=== PATIENT | female | born 1995 | race African-American/Black ===

== ENCOUNTER 2020-04-07 15:25 | Emergency (ER) | payer SELFPAY ==
[~2020-04-07] VITALS: Ht 160 cm; Wt 76.5 kg
--- NOTE | 2020-04-07 18:19 | NUR ---
PATIENT COMES IN TODAY WITH C/O EXHAUSTION X2 MONTHS, DIZZINESS INTERMITTENTLY X2 MONTHS. PATIENT STATES EARLIER TODAY AROUND 1 PM SHE WAS IN THE BATHROOM THROWING UP AND HER WHOLE BODY FELT "NUMB AND TINGLY" AND THEN SHE PASSED OUT. PATIENT DENIES OTHER SYNCOPAL EPISODES BEFORE THIS. PATIENT ALSO STATES SHES HAD SOME SHARP CHEST PAINS OVER THE LAST COUPLE WEEKS. PATIENT DENIES ANY NUMBNESS OR TINGLING AT THIS TIME. PATIENT A&OX4, ACCOMPANIED BY BOYFRIEND, HR 78, BP 132/82.
[2020-04-07] MEDS ORDERED: ESCI10TA PO (18:26)
--- NOTE | 2020-04-07 18:47 | NUR ---
PATIENT AMBULATED TO BATHROOM.
--- NOTE | 2020-04-07 18:49 | NUR ---
Report receieved from Natalia BROTHERS
--- NOTE | 2020-04-07 18:50 | NUR ---
TRANSFER OF CARE; SBAR GIVEN TO DENEEN REYNOSO AT BEDSIDE.
[2020-04-07 19:18] LABS: ANION GAP 8 mmol/L (5-15); CALCIUM 8.8 mg/dL (8.5-10.1); CHLORIDE 108 mmol/L (98-107); CREATININE 0.78 mg/dL (0.55-1.02)
[2020-04-07 19:19] LABS: BASOPHILS # (AUTO) 0.02 x10^3/uL (0-0.1); BASOPHILS % (AUTO) 0 % (0-1); EOSINOPHILS # (AUTO) 0.09 x10^3/uL (0-0.4); EOSINOPHILS % (AUTO) 1 % (1-7); LYMPHOCYTES # (AUTO) 2.29 x10^3/uL (1-3.4); LYMPHOCYTES % (AUTO) 22 % (22-44); MD NO; MEAN CORPUSCULAR HEMOGLOBIN 28.7 pg (27.0-34.8); MEAN CORPUSCULAR HGB CONC 32.6 g/dL (32.4-35.8); MEAN CORPUSCULAR VOLUME 88.1 fL (80-100); MEAN PLATELET VOLUME 9.1 fL (7.4-10.4); MONOCYTES # (AUTO) 0.44 x10^3/uL (0.2-0.8); MONOCYTES % (AUTO) 4 % (2-9); NEUTROPHILS # (AUTO) 7.53 x10^3/uL (1.8-6.8); NEUTROPHILS % (AUTO) 73 % (42-75); PLATELET COUNT 349 x10^3/uL (130-400); RED BLOOD COUNT 4.53 x10^6/uL (3.82-5.3); RED CELL DISTRIBUTION WIDTH 13.8 % (9.6-15.2)
[2020-04-07 20:00] VITALS: BP 111/82
--- NOTE | 2020-04-07 20:00 | NUR ---
TASK RN. PT D/C'D PER ERMD ORDERS. PT VERBALIZED UNDERSTANDING OF D/C ORDERS, STEADY GAIT UPON D/C.
== END 2020-04-07 20:06 | disposition home or self-care (01) ==
LOC: ED 20:00
DX: R55 Syncope and collapse (principal); R42 Dizziness and giddiness; R07.89 Other chest pain; R94.31 Abnormal electrocardiogram [ECG] [EKG]; R11.0 Nausea; F17.200 Nicotine dependence, unspecified, uncomplicated
CPT/HCPCS: 36415; 80048; 82040; 84703; 85025; 85379; 93005; 99284

== ENCOUNTER 2020-10-17 10:00 | Observation (INO) | payer OTHER ==
[~2020-10-17] VITALS: Ht 160 cm; Wt 80.6 kg
[~2020-10-17 10:00] MED LIST: ESCI10TA97 PO
--- NOTE | 2020-10-17 10:21 | NUR ---
PT BIB EMS FROM HOME SO SA. PLACED ON L2K BY [employer]. PT IS APROXX 26 WEEKS . AROUND 0830 TODAY PT ADMITS TO INGESTION ABOUT 640MG OF LEXAPRO. PER L2K PT ALSO FILLED BATHTUB WITH WATER AND WAS GOING TO GET INTO THE TUB AND THROW A TOASTER IN THE WATER BUT THE WAS ABLE TO CUT THE POWER TO THE HOUSE. PT HAS BEEN CALM AND COOPERATIVE. AND DANAE UNIT MANAGER CONVENIENCE STORES BEDSIDE FOR ASSESSMENT. PT DENIES VB OR CRAMPING. L&d NURSE IS BEDSIDE FOR ASSESSMENT. PT REPORTS THIS IS HER SECOND WITH THE FIRST BEING A MISCARRIAGE AROUND 13 WEEKS. PT STATES "KRISTINE BEEN NEEDING HELP FOR A WHILE. I JUST DID NOT KNOW HOW TO ASK" . UA SENT. LABS DRAWN. EKG COMPLETE. PT CONNECTED TO ALL MONITORING EQUIPMENT. ONLY PT AISHWARYA IS A BATHROBE. PT IS IN ROOM WITH CLEAR LINE OF VISION TO NURSES STATION. WILL CONTINUE TO MONITOR.
--- NOTE | 2020-10-17 10:27 | NUR ---
TONES 160-165. WITHIN NORMAL LIMITS
[2020-10-17 10:28] LABS: MICROSCOPIC INDICATED
[2020-10-17] MEDS ORDERED: PLEASE ENTER HEIGHT AND WEIGHT MC SCH (10:30)
[2020-10-17] MEDS ORDERED: CHARCOAL/AQUEOUS 25 GM/120 ML PO ONE (10:30)
[2020-10-17 10:31] LABS: BASOPHILS % (AUTO) 0 % (0-1); EOSINOPHILS % (AUTO) 0 % (1-7); LYMPHOCYTES % (AUTO) 8 % (22-44); MEAN CORPUSCULAR HEMOGLOBIN 28.1 pg (27.0-34.8); MEAN CORPUSCULAR HGB CONC 33.3 g/dL (32.4-35.8); MEAN PLATELET VOLUME 9.1 fL (7.4-10.4); MONOCYTES % (AUTO) 5 % (2-9); NEUTROPHILS % (AUTO) 87 % (42-75); PLATELET COUNT 328 x10^3/uL (130-400); RED BLOOD COUNT 3.91 x10^6/uL (3.82-5.3); RED CELL DISTRIBUTION WIDTH 14.3 % (9.6-15.2)
[2020-10-17 10:32] LABS: MD NO
[2020-10-17] MEDS ORDERED: CHARCOAL/SORBITOL 50 GM/240 ML ONE (10:33)
[2020-10-17 10:36] LABS: ALANINE AMINOTRANSFERASE 22 U/L (12-78); ALBUMIN 3.3 g/dL (3.4-5.0); ANION GAP 8 mmol/L (5-15); CALCIUM 8.8 mg/dL (8.5-10.1); CHLORIDE 108 mmol/L (98-107); CREATININE 0.64 mg/dL (0.55-1.02)
[2020-10-17 10:37] LABS: AMPHETAMINE SCREEN, URINE Negative (Negative); BARBITURATE SCREEN, URINE Negative (Negative); BENZODIAZEPINE SCREEN, URINE Negative (Negative); CANNABINOID SCREEN, URINE Positive (Negative); COCAINE SCREEN, URINE Negative (Negative); METHADONE SCREEN, URINE Negative (Negative); OPIATE SCREEN, URINE Negative (Negative)
[2020-10-17 10:38] LABS: ALKALINE PHOSPHATASE 84 U/L (45-117); BILIRUBIN,TOTAL 0.2 mg/dL (0.2-1.0); TOTAL PROTEIN 7.6 g/dL (6.4-8.2)
[2020-10-17] MEDS ORDERED: METOCLOPRAMIDE 5 MG/ML, 2ML ONE (10:42)
--- NOTE | 2020-10-17 10:45 | NUR ---
PT MEDICATED PER NOV. PT VOMITTING. MD NOTIFIED.
[2020-10-17] MEDS ORDERED: SODIUM CHLORIDE 0.9%, 500ML IVBOLUS ONE (11:00)
[2020-10-17] MEDS ORDERED: METOCLOPRAMIDE 5 MG/ML, 2ML IVPush ONE (11:00)
[2020-10-17 11:02] LABS: SALICYLATE LEVEL < 1.7 mg/dL (2.8-20.0)
--- NOTE | 2020-10-17 11:07 | NUR ---
PT PROVIDED WITH PILLOWS.
--- NOTE | 2020-10-17 11:50 | NUR ---
PT AMBULATED TO BATHROOM WITH STEADY GATE
--- NOTE | 2020-10-17 12:46 | NUR ---
UNABLE TO GET A HOLD OF FAMILY MEMBER. PT DOES NOT KNOW HUSBANDS PHONE NUMBER
--- NOTE | 2020-10-17 13:10 | NUR ---
PT UP AMBULATED TO PHONE TO TRY AND CONTACT FAMILY MEMBERS
--- NOTE | 2020-10-17 13:54 | NUR ---
PT RESTING IN GURNEY. AWAKE AND ALERT. BEDSIDE.
[2020-10-17] MEDS ORDERED: ACETAMINOPHEN 325 MG TABLET PO PRN (14:00)
[2020-10-17] MEDS ORDERED: ONDANSETRON ODT 4 MG PO PRN (14:00)
[2020-10-17 15:50] VITALS: BP 124/75
[2020-10-17 18:57] VITALS: BP 113/75
[2020-10-17] MEDS ORDERED: PRENATAL VIT/IRON/FA 1 EACH TABLET PO SCH (21:30)
[2020-10-18 00:45] VITALS: BP 112/73
[2020-10-18 05:10] LABS: BASOPHILS % (AUTO) 1 % (0-1); EOSINOPHILS % (AUTO) 0 % (1-7); LYMPHOCYTES % (AUTO) 16 % (22-44); MEAN CORPUSCULAR HEMOGLOBIN 28.1 pg (27.0-34.8); MEAN PLATELET VOLUME 8.7 fL (7.4-10.4); MONOCYTES % (AUTO) 7 % (2-9); NEUTROPHILS % (AUTO) 77 % (42-75); PLATELET COUNT 285 x10^3/uL (130-400); RED BLOOD COUNT 3.56 x10^6/uL (3.82-5.3); RED CELL DISTRIBUTION WIDTH 14.2 % (9.6-15.2)
[2020-10-18 05:24] LABS: MD NO
[2020-10-18 05:26] LABS: CHLORIDE 108 mmol/L (98-107)
[2020-10-18 05:33] LABS: ALANINE AMINOTRANSFERASE 22 U/L (12-78); ALBUMIN 2.8 g/dL (3.4-5.0); ALKALINE PHOSPHATASE 73 U/L (45-117); ANION GAP 11 mmol/L (5-15); BILIRUBIN,TOTAL 0.3 mg/dL (0.2-1.0); CALCIUM 8.5 mg/dL (8.5-10.1); CREATININE 0.49 mg/dL (0.55-1.02); TOTAL PROTEIN 6.6 g/dL (6.4-8.2)
[2020-10-18 06:12] VITALS: BP 111/65
[2020-10-18] MEDS ORDERED: PRENATAL VIT/IRON/FA 1 EACH TABLET PO SCH (09:00)
[2020-10-18 12:09] VITALS: BP 101/65
[2020-10-18] MEDS ORDERED: PREN-75 PO (16:18)
[2020-10-18 19:34] VITALS: BP 107/68
== END 2020-10-19 06:17 ==
LOC: ED 13:50 → EDIP 14:22 → 4WST 14:30
PROVIDERS: ADMIT Family Medicine; ATTEND Family Medicine
DX: O9A.212 Injury, poisoning and certain other consequences of external causes complicating pregnancy, second trimester (principal); T43.222A Poisoning by selective serotonin reuptake inhibitors, intentional self-harm, initial encounter; O99.342 Other mental disorders complicating pregnancy, second trimester; F41.8 Other specified anxiety disorders; O99.112 Other diseases of the blood and blood-forming organs and certain disorders involving the immune mechanism complicating pregnancy, second trimester; D72.829 Elevated white blood cell count, unspecified; D72.823 Leukemoid reaction; O99.012 Anemia complicating pregnancy, second trimester; D64.9 Anemia, unspecified; O99.322 Drug use complicating pregnancy, second trimester; F12.90 Cannabis use, unspecified, uncomplicated; Z3A.27 27 weeks gestation of pregnancy; Z79.899 Other long term (current) drug therapy
CPT/HCPCS: 36415; 80053; 80299; 80307; 80320; 80329; 81001; 84443; 85025; 87086; 93005; 96361; 96374; 99284; G0378; J2765; J7040; Q0162; G0480

== ENCOUNTER 2021-01-04 05:10 | Inpatient (IN) | payer OTHER ==
[~2021-01-04] VITALS: Ht 160 cm; Wt 87.2 kg
[~2021-01-04 05:10] MED LIST changes: +PREN-75 PO
[2021-01-04] MEDS ORDERED: ONDANSETRON 2MG/ML, 2ML IVPush PRN (05:30)
[2021-01-04] MEDS ORDERED: TERBUTALINE 1 MG/ML, 1ML IVPush PRN (05:30)
[2021-01-04] MEDS ORDERED: TERBUTALINE 1 MG/ML, 1ML SQ PRN (05:30)
[2021-01-04] MEDS ORDERED: FENTANYL PF 100 MCG/2ML IV PRN (05:30)
[2021-01-04] MEDS ORDERED: OXYTOCIN 30U/ 0.9% NaCL 500ML 500 ML IV ONE (05:30)
[2021-01-04] MEDS ORDERED: LACTATED RINGERS 1,000 ML IV SCH ×2 (05:30→10:00)
[2021-01-04] MEDS ORDERED: D5%-LACTATED RINGERS 1,000 ML IV SCH (05:30)
[2021-01-04] MEDS ORDERED: PLEASE ENTER HEIGHT AND WEIGHT MC SCH (05:30)
[2021-01-04 05:34] VITALS: BP 126/82
[2021-01-04 05:57] LABS: BASOPHILS % (AUTO) 1 % (0-1); EOSINOPHILS % (AUTO) 0 % (1-7); LYMPHOCYTES % (AUTO) 15 % (22-44); MEAN CORPUSCULAR HEMOGLOBIN 29.8 pg (27.0-34.8); MEAN CORPUSCULAR HGB CONC 33.9 g/dL (32.4-35.8); MEAN PLATELET VOLUME 9.6 fL (7.4-10.4); MONOCYTES % (AUTO) 5 % (2-9); NEUTROPHILS % (AUTO) 79 % (42-75); PLATELET COUNT 281 x10^3/uL (130-400); RED BLOOD COUNT 4.14 x10^6/uL (3.82-5.3); RED CELL DISTRIBUTION WIDTH 16.1 % (9.6-15.2)
[2021-01-04 06:05] LABS: MD NO
[2021-01-04 06:20] LABS: AMPHETAMINE SCREEN, URINE Negative (Negative); BARBITURATE SCREEN, URINE Negative (Negative); BENZODIAZEPINE SCREEN, URINE Negative (Negative); CANNABINOID SCREEN, URINE Negative (Negative); COCAINE SCREEN, URINE Negative (Negative); METHADONE SCREEN, URINE Negative (Negative); OPIATE SCREEN, URINE Negative (Negative)
[2021-01-04] MEDS ORDERED: MISOPROSTOL 200 MCG TABLET ONE (06:26)
[2021-01-04] MEDS ORDERED: LIDOCAINE 1%, 20ML ONE (06:26)
[2021-01-04] MEDS ORDERED: OXYTOCIN 30U/ 0.9% NaCL 500ML 500 ML IV PRN (06:30)
[2021-01-04] MEDS ORDERED: NEWBORN KIT ONE (07:04)
[2021-01-04] MEDS ORDERED: EPHEDRINE 50 MG/ML, 1ML IVPush PRN (10:00)
[2021-01-04] MEDS ORDERED: FENTANYL/BUPIV./NS/PF 250 ML EPIDCONT SCH (10:00)
[2021-01-04] MEDS ORDERED: NALOXONE 0.4 MG/ML, 1ML IVPush PRN (10:00)
[2021-01-04] MEDS: FENTANYL PF 100 MCG/2ML IVPush PRN ×2 (11:01→11:58)
[2021-01-04 11:02] LABS: ALANINE AMINOTRANSFERASE 18 U/L (12-78); ALBUMIN 2.9 g/dL (3.4-5.0); ANION GAP 6 mmol/L (5-15); CALCIUM 9.2 mg/dL (8.5-10.1); CHLORIDE 107 mmol/L (98-107)
[2021-01-04 11:05] LABS: ALKALINE PHOSPHATASE 147 U/L (45-117); BILIRUBIN,TOTAL 0.1 mg/dL (0.2-1.0); CREATININE 0.52 mg/dL (0.55-1.02)
[2021-01-04 11:07] LABS: BILIRUBIN, DIRECT < 0.1 mg/dL (0.1-0.2)
[2021-01-04 11:54] LABS: CREATININE,URINE RANDOM 30.7 mg/dL
[2021-01-04] MEDS: CALCIUM CARBONATE 500 MG TAB.CHEW PO PRN ×3 (11:56→16:45)
[2021-01-04] MEDS: LACTATED RINGERS 1,000 ML IVBOLUS PRN ×2 (12:15→13:03)
[2021-01-04] MEDS ORDERED: BUPIVACAINE 0.25% ONE (12:53)
[2021-01-04] MEDS ORDERED: HYDROcodone/APAP 5/325 TABLET PO PRN (17:30)
[2021-01-04] MEDS ORDERED: DOCUSATE 100 MG CAPSULE PO PRN (17:30)
[2021-01-04] MEDS ORDERED: ACETAMINOPHEN 325 MG TABLET PO PRN ×2 (17:30)
[2021-01-04] MEDS ORDERED: MISOPROSTOL 200 MCG TABLET PR PRN (17:30)
[2021-01-04] MEDS ORDERED: SIMETHICONE 80 MG CHEW TAB PO PRN (17:30)
[2021-01-04] MEDS ORDERED: METHYLERGONOVINE 0.2 MG/ML IM PRN (17:30)
[2021-01-04] MEDS ORDERED: CARBOPROST TROMETHAMINE 250 MCG/ML, 1ML IM PRN (17:30)
[2021-01-04] MEDS ORDERED: IBUPROFEN 600 MG TABLET ONE (18:30)
[2021-01-04] MEDS: OXYTOCIN 30U/ 0.9% NaCL 500ML 500 ML IV SCH (18:31)
[2021-01-04 20:00] VITALS: BP 122/80
[2021-01-05 00:30] VITALS: BP 102/65
[2021-01-05] MEDS: IBUPROFEN 600 MG TABLET PO PRN ×3 (00:39→16:10)
[2021-01-05 01:16] LABS: BASOPHILS % (AUTO) 0 % (0-1); EOSINOPHILS % (AUTO) 0 % (1-7); LYMPHOCYTES % (AUTO) 13 % (22-44); MEAN CORPUSCULAR HEMOGLOBIN 28.9 pg (27.0-34.8); MEAN CORPUSCULAR HGB CONC 32.8 g/dL (32.4-35.8); MEAN PLATELET VOLUME 9.3 fL (7.4-10.4); MONOCYTES % (AUTO) 7 % (2-9); NEUTROPHILS % (AUTO) 79 % (42-75); PLATELET COUNT 212 x10^3/uL (130-400); RED CELL DISTRIBUTION WIDTH 15.8 % (9.6-15.2)
[2021-01-05 01:17] LABS: MD NO
[2021-01-05] MEDS: OXYTOCIN 30U/ 0.9% NaCL 500ML 500 ML IV SCH ×2 (03:30→13:30)
[2021-01-05 04:00] VITALS: BP 108/64
[2021-01-05 08:00] VITALS: BP 112/75
[2021-01-05] MEDS ORDERED: PRENATAL VIT/IRON/FA 1 EACH TABLET PO SCH (09:00)
[2021-01-05] MEDS ORDERED: DIPH,PERTUSS(ACELL),TET VAC/PF NC IM-VACC ONE (12:00)
[2021-01-05 13:00] VITALS: BP 112/68
[2021-01-05] MEDS: HYDROcodone/APAP 5/325 TABLET PO PRN ×2 (13:06→17:38)
[2021-01-05 17:00] VITALS: BP 118/81
== END 2021-01-05 18:00 | disposition home or self-care (01) | DRG 807 ==
LOC: LDIP 05:10 → 2NW 19:44
PROVIDERS: ADMIT Obstetrics & Gynecology; ATTEND Obstetrics & Gynecology
PROC: 10E0XZZ Delivery of Products of Conception, External Approach (ICD-10-PCS; principal; 2021-01-04)
PROC: 10907ZC Drainage of Amniotic Fluid, Therapeutic from Products of Conception, Via Natural or Artificial Opening (ICD-10-PCS; 2021-01-04)
PROC: 3E0R3BZ Introduction of Anesthetic Agent into Spinal Canal, Percutaneous Approach (ICD-10-PCS; 2021-01-04)
PROC: 00HU33Z Insertion of Infusion Device into Spinal Canal, Percutaneous Approach (ICD-10-PCS; 2021-01-04)
DX: O69.81X0 Labor and delivery complicated by cord around neck, without compression, not applicable or unspecified (principal); Z37.0 Single live birth; Z3A.39 39 weeks gestation of pregnancy; Z20.822 Contact with and (suspected) exposure to COVID-19
CPT/HCPCS: 36415; 80053; 80307; 82248; 82570; 84156; 84550; 85025; 86592; 86850; 86900; 87635; G0378; J3010; J2590; J7120